=== PATIENT | male | born 1970 | race African-American/Black ===

== ENCOUNTER 2022-09-17 00:09 | Emergency (ER) | payer MEDICARE ==
[2022-09-17] MEDS ORDERED: Ketorolac Tromethamine 30 MG/ML VIAL ONE (01:12)
[2022-09-17] MEDS ORDERED: diphenhydrAMINE 50 MG/ML VIAL ONE (01:12)
[2022-09-17] MEDS ORDERED: diphenhydrAMINE 12.5 MG/5 ML UDCUP ONE (01:12)
[2022-09-17] MEDS ORDERED: Prochlorperazine 10 MG/2 ML VIAL ONE (01:12)
[2022-09-17] MEDS ORDERED: Lactated Ringer's 1,000 ML BAG ONE (06:23)
== END 2022-09-17 03:09 | disposition home or self-care (01) ==
LOC: MADERS 00:09
DX: I10 Essential (primary) hypertension (principal); J45.909 Unspecified asthma, uncomplicated; F17.210 Nicotine dependence, cigarettes, uncomplicated; Z79.899 Other long term (current) drug therapy
CPT/HCPCS: 93005; 96374; 96375; J0780; J1200; J1885; J7120; Q0163